=== PATIENT | male | born 1985 ===

== ENCOUNTER 2024-03-12 10:33 | Day surgery (SDC) | payer OTHER ==
[~2024-03-12] VITALS: Ht 180.3 cm; Wt 88.2 kg
[~2024-03-12 10:33] MED LIST: LR 1,000 ML IV SCH; Ondansetron 4 MG/2 ML VIAL IV PRN
[2024-03-12 10:44] VITALS: BP 116/64; PULSE 62; TEMP 98.1
--- NOTE | 2024-03-12 11:15 | NUR ---
The patient ambulated back to [place] [facility] independently using a steady gait and appeared to tolerate the activity well. Vital signs obtained. Consent signed. 20G IV started in right hand with one stick, LR Infusing without difficulty. The patient had a vagal episode after his IV was placed. He reported feeling light headed and sweaty. He was given an cool washcloth and the chair was reclined back. Assessment completed. Home medications reconcilled. The patient's is going to come pick him up for discharge. Denies any further needs at this time.
[2024-03-12 13:13] VITALS: BP 115/81; PULSE 71
[2024-03-12 13:30] VITALS: BP 117/72; PULSE 63
[2024-03-12 13:45] VITALS: BP 118/67; PULSE 56
--- NOTE | 2024-03-12 14:37 | NUR ---
1313 PATIENT RETURNS TO [facility] [place] [facility] VIA CART. PT AWAKE AND ALERT. RESPIRATIONS UNLABORED. AMBULATED TO RECLINER CHAIR WITH 2:1 SBA. PT DENIES NAUSEA OR ABDOMINAL PAIN. HOOKED UP TO MONITOR AND VS OBTAINED. CALL LIGHT AT SIDE AND NO FAMILY PRESENT. 1320 PATIENT TOLERATING APPLE JUICE WITHOUT NAUSEA OR DIFFICULTY SWALLOWING (EGD ONLY). 1330 IN ROOM SPEAKING WITH PATIENT. 1345 D/C INSTRUCTIONS REVIEWED WITH PATIENT. PT VERBALIZED UNDERSTANDING AND A COPY OF INSTRUCTIONS PROVIDED IN D/C FOLDER. 1355 PATIENT DRESSES SELF. 1400 PATIENT DISCHARGED FROM UNIT VIA W/C TO A PERSONAL VEHICLE. PT LEFT HOSPITAL IN STABLE CONDITION.
[2024-03-12 15:08] VITALS: BP 101/70; PULSE 60
== END 2024-03-12 14:00 | disposition home or self-care (01) ==
LOC: SDCO 10:33
DX: K64.0 First degree hemorrhoids (principal); K64.4 Residual hemorrhoidal skin tags
CPT/HCPCS: J2704; J7120